=== PATIENT | male | born 1960 | race Caucasian/White ===

== ENCOUNTER → 2018-06-19 | Outpatient (RCR) | payer BC | END | disposition home or self-care (01) | LOC: WSPT → WSC 03-21 15:59 → WSPT 03-28 16:30 | DX: M25.512 Pain in left shoulder (principal); M25.561 Pain in right knee; R20.2 Paresthesia of skin; R29.3 Abnormal posture; Z74.09 Other reduced mobility | CPT/HCPCS: G0283-GP ==

== ENCOUNTER 2018-07-10 08:45 | Outpatient (RCR) | payer BC | END 2018-09-24 | disposition home or self-care (01) | LOC: WSPT | DX: M79.602 Pain in left arm (principal); M79.601 Pain in right arm; M79.605 Pain in left leg; M79.604 Pain in right leg; R20.0 Anesthesia of skin; R20.2 Paresthesia of skin; M53.2X4 Spinal instabilities, thoracic region; R29.3 Abnormal posture ==